=== PATIENT | female | born 1980 | race Hispanic/Latino ===

== ENCOUNTER 2019-05-10 19:40 | Inpatient (IN) | payer OTHER ==
[~2019-05-10 19:40] MED LIST: Iopamidol-370 76% 500 ML 1 ML ONE
[2019-05-10] MEDS ORDERED: Mag-Al 1200 mg/1200 mg/30 ML UDCUP ONE (20:03)
[2019-05-10] MEDS ORDERED: Lidocaine Viscous Sol 2% 15 ml UD Cup ONE (20:03)
--- NOTE | 2019-05-10 20:28 | RAD ---
PORTABLE CHEST ONE VIEW: 05/10/19 at 7:42 p.m. HISTORY: Epigastric pain, chest pain. FINDINGS/IMPRESSION: The heart size is enlarged. No lobar consolidation, pneumothoraces, holli pulmonary edema or pleural effusions are seen. POS: OFF
[2019-05-10 20:30] LABS: #Eosinphils 0.1 thou/uL (0.0-0.7); #Lymphocytes 1.2 thou/uL (1.20-3.40); #Monocytes 0.7 thou/uL (0.11-0.59); #Neutrophils 11.3 thou/uL (1.40-6.50); %Basophils 0.4 % (0.0-1.0); %Eosinophils 0.4 % (0.0-10.0); %Lymphocytes 9.3 % (21.0-51.0); %Neutrophils 84.9 % (42.0-75.0); Hemoglobin 15.4 g/dL (12.0-16.0); Mean Corpuscular HGB CONC 31.3 g/dL (32.0-36.0); Mean Corpuscular Hemoglobin 30.2 pg (27.0-31.0); Mean Corpuscular Volume 96.5 fL (78.0-98.0); Mean Platelet Volume 6.4 fL (7.4-10.4); Platelet Count 404 thou/uL (130-400); RBC Distribution Width 13.6 % (11.5-14.5); Red Blood Cell (RBC) Count 5.11 mill/uL (4.20-5.40); White Blood Cell (WBC) Count 13.3 thou/uL (4.8-10.8)
[2019-05-10 20:55] LABS: ALT (SGPT) 14 U/L (8-55); AST (SGOT) 12 U/L (5-34); Albumin 3.9 g/dL (3.5-5.0); Alkaline Phosphatase 122 U/L (40-110); Anion Gap 15 mmol/L (10-20); BUN (Urea Nitrogen) 5 mg/dL (7.0-18.7); Bilirubin, Total 0.5 mg/dL (0.2-1.2); Calc. Creatinine Clearance 0 mL/min (70-130); Calcium 9.1 mg/dL (7.8-10.44); Carbon Dioxide 28 mmol/L (22-29); Chloride 98 mmol/L (98-107); Estimated GFR-MDRD Greater than 90; Glucose 114 mg/dL (70-105); Lipase Less than 4 U/L (8-78); Potassium 3.8 mmol/L (3.5-5.1); Protein, Total 7.9 g/dL (6.0-8.3); Sodium 137 mmol/L (136-145)
[2019-05-10] MEDS ORDERED: Morphine 4 MG/ML VIAL ONE (21:02)
[2019-05-11] MEDS ORDERED: Morphine 4 MG/ML VIAL ONE (00:19)
[2019-05-11 02:17] LABS: BHCG - Serum Negative (NEGATIVE); Pregs Control Background? CLEAR/WHITE (CLR/WHITE); Pregs Control Bar Appear? YES (CONTROL BAR)
[2019-05-11 02:21] LABS: Pregnancy Test - Urine (BHCG) Negative (Negative); Pregu Control Background? CLEAR/WHITE (CLR/WHITE); Pregu Control Bar Appear? YES (CONTROL BAR); Specific Gravity 1.019 (1.002-1.036)
[2019-05-11] MEDS ORDERED: Ondansetron PF 4 MG/2 ML Vial ONE ×2 (02:25→09:45)
[2019-05-11] MEDS ORDERED: Acetaminophen 325 MG TAB PO PRN (04:08)
[2019-05-11] MEDS ORDERED: Senokot S 8.6-50 MG TAB PO PRN (04:08)
[2019-05-11] MEDS ORDERED: Ondansetron PF 4 MG/2 ML Vial IVP PRN (04:08)
--- NOTE | 2019-05-11 04:15 | PDOC.HHP ---
Hospitalist HPI - History of Present Illness Abdominal pain History of Present Illness: 38 yo female with cerebral palsy was brought to ER due to abdominal pain. Patient's mother is at bedside. Patient states that early this morning she started having mild abdominal pain in the left upper abdomen. She then had 4 episodes of vomiting without any blood or mucous. Her pain worsened to 9/10 intensity in the left upper abdomen with radiation to the back around the left side of the chest and abdomen. It is dull in nature. No aggravating factors. Partial relief with opioid medications. Associated with nausea and vomiting. No D/C, burning or pain with urination. No headache, dizziness, CP, cough or wheezing. She has some SOB when her pain worsens. At baseline, she is bed bound due to her cerebral palsy. No recent travel history or sick contacts. No rash or bruising or leg swelling. ED Course: CTA chest with no PE. CT abdomen/pelvis with cholelithiasis and gallbladder distention. 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 (Cerebral Palsy) Gastrointestinal: reports: no pertinent history Heme/Onc: reports: no pertinent history Hepatobiliary: reports: no pertinent history Psych: reports: Anxiety Musculoskeletal: reports: no pertinent history Rheumatologic: reports: no pertinent history Infectious Disease: reports: no pertinent history ENT: reports: no pertinent history Renal/: reports: no pertinent history Endocrine: reports: no pertinent history - Past Surgical History Past Surgical History: reports: no pertinent history (reviewed) - Family History Family History: reports: no pertinent history (reviewed) - Social History Smoking Status: Never smoker Alcohol: reports: None Drugs: reports: none Living Situation: With Family Activity level: bed bound - Exam General Appearance: awake alert, ill appearing (in moderate distress) Eye: PERRL, anicteric sclera ENT: normocephalic atraumatic, no oropharyngeal lesions, dry oral mucosa Neck: supple, symmetric, no JVD, no thyromegaly, no lymphadenopathy, no carotid bruit Heart: no murmur, no gallops, no rubs, normal peripheral pulses Heart - other findings: tachycardia present; Distant heart sounds Respiratory: CTAB, no wheezes, no rales, no ronchi, normal chest expansion, no tachypnea Respiratory - other findings: reduced air entry bilaterally Gastrointestinal: soft, non-distended, normal bowel sounds, no palpable masses, tender to palpation (Epigastric and RUQ; Gonzales's sign equivocal), distended ( obese) Extremities: no cyanosis, no clubbing, no edema Skin: normal turgor, no lesions, no rashes Neurological: cranial nerve grossly intact, normal sensation to touch Musculoskeletal: normal tone, no muscle wasting Psychiatric: normal affect, normal behavior, A&O x 3 Hospitalist Results - Labs Result Diagrams: 05/10/19 20:23 05/10/19: Lab results: WBC 13.3 thou/uL (4.8-10.8) H 05/10/19 20: Hgb 15.4 g/dL (12.0-16.0) 05/10/19: Hct 49.3 % (36.0-47.0) H 05/10/19: MCV 96.5 fL (78.0-98.0) 05/10/19: Plt Count 404 thou/uL (130-400) H 05/10/19 20: Neutrophils % 84.9 % (42.0-75.0) H 05/10/19 20: Sodium 137 mmol/L (136-145) 05/10/19: Potassium 3.8 mmol/L (3.5-5.1) 05/10/19 20: Chloride 98 mmol/L (98-107) 05/10/19: Carbon Dioxide 28 mmol/L (22-29) 05/10/19: BUN 5 mg/dL (7.0-18.7) L 05/10/19: Creatinine 0.62 mg/dL (0.6-1.1) 05/10/19: Glucose 114 mg/dL (70-105) H 05/10/19: Calcium 9.1 mg/dL (7.8-10.44) 05/10/19: Total Bilirubin 0.5 mg/dL (0.2-1.2) 05/10/19 20: AST 12 U/L (5-34) 05/10/19: ALT 14 U/L (8-55) 05/10/19 20:23 Alkaline Phosphatase 122 U/L (40-110) H 05/10/19 20: Troponin I Less than 0.010 ng/mL (< 0.028) 05/10/19 20: Serum Total Protein 7.9 g/dL (6.0-8.3) 05/10/19 20: Albumin 3.9 g/dL (3.5-5.0) 05/10/19 20: Lipase Less than 4 U/L (8-78) L 05/10/19 20:23 - EKG Interpretation EKG: Personally reviewed - Sinus tachycardia; No ST-T changes concerning for ischemia - Radiology Interpretation CT scan - abdomen Status: report reviewed by me (Cholelithiasis with distention measuring 12.6 cm) Hospitalist H&P A/P - Problem (1) Cholelithiasis Code(s): K80.20 - CALCULUS OF GALLBLADDER W/O CHOLECYSTITIS W/O OBSTRUCTION Status: Acute Qualifiers: Cholelithiasis location: gallbladder Cholecystitis presence: without cholecystitis Biliary obstruction: without biliary obstruction Qualified Code(s): K80.20 - Calculus of gallbladder without cholecystitis without obstruction Assessment and Plan: Pt. with acute abdominal pain and nausea/vomiting CT evidence of cholelithiasis with gallbladder distention Admit to inpatient status. High risk due to possible need for surgical intervention Expected to stay at least 2 midnights Surgery and GI consult NPO for now Adequate pain control meds (2) Cerebral palsy Code(s): G80.9 - CEREBRAL PALSY, UNSPECIFIED Status: Chronic Qualifiers: Cerebral palsy type: unspecified type Qualified Code(s): G80.9 - Cerebral palsy, unspecified Assessment and Plan: Supportive care (3) Morbid obesity Code(s): E66.01 - MORBID (SEVERE) OBESITY DUE TO EXCESS CALORIES Status: Chronic - Plan Plan: CODE STATUS - FULL CODE
[2019-05-11] MEDS: Ketorolac Tromethamine 30 MG/ML VIAL IVP PRN ×2 (05:29→18:33)
[2019-05-11] MEDS: Sodium Chloride 0.9% 1,000 ML IV SCH ×4 (05:29→18:35)
[2019-05-11 06:36] VITALS: BMI 51.0
[2019-05-11] MEDS ORDERED: FLU VACC QS2019-20(6MOS UP)/PF 60 MCG/0.5 ML SYRINGE IM ONE (06:45)
--- NOTE | 2019-05-11 08:01 | CT ---
PRELIMINARY REPORT/[facility]/EMERGENCY AFTER HOURS PROCEDURE EXAM: CT Abdomen and Pelvis Without Intravenous Contrast CLINICAL HISTORY: [id number] presented to the ED with a c/o CP onset this morning. Pt reports abdominal pain and vomited today . Pt reports she vomiting 4-5 times. Pt reports lower back pain on both sides TECHNIQUE: Axial computed tomography images of the abdomen and pelvis without intravenous contrast. CONTRAST: None. COMPARISON: None provided. FINDINGS: LUNG BASES: No basilar airspace consolidation or pleural effusion. LIVER: Unremarkable. GALLBLADDER AND BILE DUCTS: Stones in the gallbladder lumen. No gallbladder wall thickening or peric holecystic fluid. The gallbladder is distended measuring 12.6 cm in length. No ductal dilation. PANCREAS: Unremarkable. SPLEEN: Unremarkable. ADRENAL GLANDS: Unremarkable. KIDNEYS, URETERS, AND BLADDER: Unremarkable. No hydronephrosis or nephrolithiasis. No ureteral or ronn dder calculi. STOMACH AND BOWEL: No obstruction. No wall thickening. No CT evidence of colitis or acute diverticuli tis. APPENDIX: No CT evidence for appendicitis. PERITONEUM: No free fluid. No free air. LYMPH NODES: No lymphadenopathy. REPRODUCTIVE: The uterus and ovaries are normal. VASCULATURE: No aortic aneurysm. ABDOMINAL WALL AND SOFT TISSUES: Unremarkable. BONES: Acute anterior compression fracture of L2 with 20% height loss. Multilevel degenerative disc disease. IMPRESSION: Cholelithiasis with hydrops of the gallbladder. Acute anterior compression fracture of L2. ELECTRONICALLY SIGNED BY: Alexei Gregory MD May 11, 2019 2:58:27 AM SITECORE DEVELOPER This report is intended for review by the ordering physician only, in accordance of law. If you recei ve this report in error, please call [facility] at [phone]. FINAL REPORT EMERGENCY AFTER HOURS NONCONTRAST CT ABDOMEN AND PELVIS : HISTORY: Chest pain with onset of symptoms this morning. Patient also reports abdominal pain and vomiting. Low er back pain bilaterally. IMPRESSION: 1. Distention of the gallbladder with gallbladder calculi present. 2. Contrast in the bilateral renal collecting systems as well as in the urinary bladder related to pr ior contrasted study. This limits evaluation for renal or ureteral calculi. No hydronephrosis is present. 3. Probable small left ovarian cyst measuring 2.7 cm. 4. Suggestion of minimal stranding adjacent to the fundus of the distended gallbladder. If there is c oncern for cholecystitis, right upper quadrant ultrasound may be beneficial for further evaluation. 5. Mild compression fracture involving the superior endplate L2 vertebral body. Exact age is indeterm inate, but this may be more recent in origin. Findings are agreement with the preliminary report by [facility]. Transcribed Date/Time: 05/11/2019 8:06 AM
[2019-05-11] MEDS: Famotidine/PF 20 mg/2ml Vial SLOW IVP SCH ×2 (08:06→20:48)
--- NOTE | 2019-05-11 08:13 | ULT ---
ULTRASOUND GALLBLADDER RIGHT UPPER QUADRANT: HISTORY: Right upper quadrant abdominal pain. COMPARISON: None. FINDINGS: Real-time beckham scale and color evaluation of the right upper quadrant of the abdomen was performed. The hepatic echotexture is limited. There is cholelithiasis and wall thickening. Positive Gonzales's sign. Gallbladder is distended. Common bile duct measures 5 mm, normal. IMPRESSION: Distended gallbladder with cholelithiasis as well as a positive Gonzales's sign suggesting acute cholec ystitis. This is suggested on the CT examination. POS: CET
--- NOTE | 2019-05-11 08:38 | CT ---
PRELIMINARY REPORT/[facility]/EMERGENCY AFTER HOURS PROCEDURE EXAM: CTA Chest with Intravenous Contrast CLINICAL HISTORY: F38 presented to the ED with a c/o CP onset this morning. Pt reports abdominal pain and vomited today . Elevated D-dimer TECHNIQUE: Axial CTA images of the chest with intravenous contrast. MIP reconstructed images were created and re viewed. CONTRAST: With; ISOVUE 370, 95ml COMPARISON: None provided. FINDINGS: PULMONARY ARTERIES No intraluminal filling defect suspicious for PE. AORTA No thoracic aortic aneurysm or dissection. LUNGS Mosaic attenuation throughout the lungs. No pulmonary mass. No focal airspace consolidation. PLEURAL SPACES No pleural effusion. No pneumothorax. HEART AND MEDIASTINUM Mild cardiomegaly. No significant pericardial effusion. LYMPH NODES No lymphadenopathy. BONES No focal osseous abnormality or acute fracture. CHEST WALL AND UPPER ABDOMEN Stones in the gallbladder lumen. No vulvar wall thickening or perichole cystic fluid. The chest wall is unremarkable. IMPRESSION: No evidence of a pulmonary embolism. Nonspecific mosaic attenuation of the lungs. Mild cardiomegaly. ELECTRONICALLY SIGNED BY: Alexei Gregory MD May 11, 2019 1:18:43 AM PUBLIC HEALTH SANITARIAN This report is intended for review by the ordering physician only, in accordance of law. If you recei ve this report in error, please call [facility] at [phone]. FINAL REPORT CT ANGIOGRAM CHEST WITH CONTRAST: HISTORY: Chest pain, elevated D-dimer. COMPARISON: None. FINDINGS: CT angiogram chest performed after the intravenous administration of contrast. Three-D rendering was provided. Findings and impression are concordant with the preliminary report, aside from where it says vulvar w all thickening as the vulva is not interrogated. There is also wall thickening of the gallbladder bahena spicious for acute cholecystitis. POS: CET
[2019-05-11] MEDS ORDERED: Dexamethasone 20 MG/5 ML VIAL ONE (09:45)
[2019-05-11] MEDS ORDERED: PROPOFOL 200 MG/20 ML VIAL ONE (09:45)
[2019-05-11] MEDS ORDERED: Rocuronium Bromide 10 MG/ML (10ML VIAL) ONE (09:45)
[2019-05-11] MEDS ORDERED: Lidocaine 1% PF 5 ML VIAL ONE (09:45)
[2019-05-11] MEDS: Meperidine HCl/PF 25 MG/ML VIAL SLOW IVP PRN ×2 (10:07→23:16)
[2019-05-11] MEDS: metroNIDAZOLE 500 MG in Premix Bag 1 BAG IVPB SCH ×2 (10:10→18:34)
--- NOTE | 2019-05-11 10:37 | PDOC.GSCN ---
Surgery Consult: HPI - Consult details Date: 05/11/19 Time: 10:39 Reason for consult: gallstones (Full note dictated. Pt comes in with 1 day h/o upper abd pain and vomiting. W/U is c/s cholecystitis. Heart is tachy, but regular. Lungs grossly clear. ABD is obese and firm. CT and US are consistent with cholecystitis. WBC elevated. Discussed surgery with the pt's mother and father. They understand that she is at high risk given her immobility and morbid obesity. Other risks include damage to kitty, liver, and bile ducts.) Surgery Consult: Exam - Vital signs Vital signs: Vital Signs - Most Recent Temp Pulse Resp BP Pulse Ox 98.0 F 120 H 20 128/93 H 93 L 05/11/19 07:44 05/11/19 07:44 05/11/19 07:44 05/11/19 07:44 05/11/19 08:05 Surgery Consult: Meds - Medications Medications: Current Medications Acetaminophen (Tylenol) 650 mg PO Q4H PRN PRN Reason: Headache/Fever/Mild Pain (1-3) Famotidine (Pepcid) 20 mg SLOW IVP Q12HR [facility] Last Admin: 05/11/19 08:06 Dose: 20 mg Metronidazole 500 mg/ Device 100 mls @ 100 mls/hr IVPB Q8H [facility] Last Admin: 05/11/19 10:10 Dose: 100 mls Ciprofloxacin/Dextrose 400 mg/ (Device) 200 mls @ 200 mls/hr IVPB Q12H [facility] Ketorolac Tromethamine (Toradol) 30 mg IVP Q6H PRN PRN Reason: Moderate to Severe Pain (6-10) Stop: 05/16/19 04:11 Last Admin: 05/11/19 05:29 Dose: 30 mg Meperidine HCl (Demerol) 12.5 mg SLOW IVP Q4H PRN PRN Reason: Moderate to Severe Pain (6-10) Last Admin: 05/11/19 10:07 Dose: 12.5 mg Ondansetron HCl (Zofran) 4 mg IVP Q6H PRN PRN Reason: Nausea/Vomiting Senna/Docusate Sodium (Senokot S) 2 tab PO BID PRN PRN Reason: Constipation Sodium Chloride (Flush - Normal Saline) 10 ml IVF Q12HR [facility] Last Admin: 05/11/19 08:07 Dose: 10 ml Sodium Chloride (Flush - Normal Saline) 10 ml IVF PRN PRN PRN Reason: Saline Flush - Allergies Allergies/Adverse Reactions: Allergies Allergy/AdvReac Type Severity Reaction Status Date / Time Penicillins Allergy Severe Anaphylaxis Verified 05/11/19 05:24 peanut Allergy Verified 05/11/19 05:23 Surgery Consult: Results - Labs Result Diagrams: 05/10/19 20:05/10/19 Lab results: Laboratory Results WBC 13.3 thou/uL (4.8-10.8) H 05/10/19: RBC 5.11 mill/uL (4.20-5.40) 05/10/19 Hgb 15.4 g/dL (12.0-16.0) 05/10/19 Hct 49.3 % (36.0-47.0) H 05/10/19: MCV 96.5 fL (78.0-98.0) 05/10/19: MCH 30.2 pg (27.0-31.0) 05/10/19 MCHC 31.3 g/dL (32.0-36.0) L 05/10/19 RDW 13.6 % (11.5-14.5) 05/10/19 Plt Count 404 thou/uL (130-400) H 05/10/19: MPV 6.4 fL (7.4-10.4) L 05/10/19: Neutrophils % 84.9 % (42.0-75.0) H 05/10/19: Lymphocytes % 9.3 % (21.0-51.0) L 05/10/19: Monocytes % 5.0 % (0.0-10.0) 05/10/19 Eosinophils % 0.4 % (0.0-10.0) 05/10/19 Basophils % 0.4 % (0.0-1.0) 05/10/19 20: Neutrophils # 11.3 thou/uL (1.40-6.50) H 05/10/19: Lymphocytes # 1.2 thou/uL (1.20-3.40) 05/10/19 20:23 Monocytes # 0.7 thou/uL (0.11-0.59) H 05/10/19 20: Eosinophils # 0.1 thou/uL (0.0-0.7) 05/10/19 20: Basophils # 0.0 thou/uL (0.0-0.2) 05/10/19: D-Dimer 0.50 *mcg/mL (0.27-0.43) H 05/10/19 20:17 Sodium 137 mmol/L (136-145) 05/10/19 20: Potassium 3.8 mmol/L (3.5-5.1) 05/10/19: Chloride 98 mmol/L (98-107) 05/10/19: Carbon Dioxide 28 mmol/L (22-29) 05/10/19: Anion Gap 15 mmol/L (10-20) 05/10/19: BUN 5 mg/dL (7.0-18.7) L 05/10/19: Creatinine 0.62 mg/dL (0.6-1.1) 05/10/19: Estimated GFR (MDRD) Greater than 90 05/10/19: Glucose 114 mg/dL (70-105) H 05/10/19: Calcium 9.1 mg/dL (7.8-10.44) 05/10/19 Total Bilirubin 0.5 mg/dL (0.2-1.2) 05/10/19: AST 12 U/L (5-34) 05/10/19: ALT 14 U/L (8-55) 05/10/19: Alkaline Phosphatase 122 U/L (40-110) H 05/10/19 Troponin I Less than 0.010 ng/mL (< 0.028) 05/10/19 Serum Total Protein 7.9 g/dL (6.0-8.3) 05/10/19: Albumin 3.9 g/dL (3.5-5.0) 05/10/19: Globulin 4.0 g/dL (2.4-3.5) H 05/10/19 20:23 Albumin/Globulin Ratio 1.0 g/dL (1.2-2.2) L 05/10/19 20:23 Lipase Less than 4 U/L (8-78) L 05/10/19 20:23 Serum , Qual Negative (NEGATIVE) 05/11/19 01:55 Ur Specific [place] 1.019 (1.002-1.036) 05/11/19 01:53 Urine Test Negative (Negative) 05/11/19 01:53
[2019-05-11] MEDS ORDERED: Heparin 5,000 UNITS/ML VIAL SC SCH ×2 (10:41→11:00)
[2019-05-11] MEDS ORDERED: Fentanyl 100 MCG/2 ML VIAL ONE ×3 (11:19→15:45)
[2019-05-11] MEDS ORDERED: Lidocaine 2% Jelly 5 ML TUBE ONE (11:19)
[2019-05-11] MEDS ORDERED: Midazolam HCl 2 mg/2 ml Vial ONE (11:19)
[2019-05-11] MEDS ORDERED: HYDROmorphone 0.5 MG/0.5 ML SYRINGE ONE (11:19)
[2019-05-11] MEDS ORDERED: Bupivacaine PF 0.5% 30 ML VIAL ONE (11:30)
[2019-05-11] MEDS ORDERED: Lidocaine 1% w/Epinephrine 1:100K 20 ML VIAL ONE (11:30)
--- NOTE | 2019-05-11 12:16 | CON ---
DATE OF CONSULTATION: 05/11/2019 REASON FOR CONSULTATION: Cholecystitis. CHIEF COMPLAINT: Unobtainable. HISTORY OF PRESENT ILLNESS: The patient is a 38-year-old female with a history of cerebral palsy, who was brought into the emergency room with abdominal pain. History is provided by the patient's mother. She states that the patient started having pain yesterday. It was in the epigastric region. She had multiple episodes of vomiting. The patient was complaining of pain that was 9/10, radiated to her back. She was given pain medicine in the ER, which helped somewhat. The patient is immobile secondary to her cerebral palsy. PAST MEDICAL HISTORY: For morbid obesity and cerebral palsy. PAST SURGICAL HISTORY: None. ALLERGIES: TO PENICILLIN AND PEANUT. CURRENT MEDICATIONS: None. REVIEW OF SYSTEMS: Not obtainable. PHYSICAL EXAMINATION: VITAL SIGNS: Heart rate in the low 100s, temperature 98.4, and blood pressure 130/90. GENERAL: Morbidly obese female, who appears somewhat uncomfortable. HEENT: Head is normocephalic and atraumatic. NECK: Obese and full with a midline trachea. LUNGS: Grossly clear to auscultation bilaterally. HEART: Tachycardic, but it is regular. ABDOMEN: Obese and tender to palpation in the right upper quadrant. No palpable masses, although body habitus limits further examination. EXTREMITIES: Without deformity. SKIN: Good turgor. No jaundice. LABORATORY DATA: White blood cell count of 13.3 and H and H is 15.4 and 49. Total bilirubin is 0.5. AST and ALT are normal. Alkaline phosphatase is 122. IMAGING: The patient had a CT scan of the abdomen as well as a right upper quadrant ultrasound. I independently reviewed the images as well as read the radiologist's interpretation. The gallbladder is distended. The patient has cholelithiasis. Gallbladder wall thickness is normal in ultrasound. Common bile duct is 5 mm. ASSESSMENT: 1. Acute cholecystitis. I had a lengthy discussion with the patient's parents about surgical intervention. The patient is at increased risk secondary to her morbid obesity as well as her immobility. 2. Morbid obesity. This will increase the patient's risk of postoperative pulmonary problems as well as deep venous thrombosis, hernias, and wound infection. PLAN: The patient is already on antibiotics. She is n.p.o. We will give her subcutaneous heparin prior to going to the operating room. She will be going to the operating room today for laparoscopic cholecystectomy. Decision for surgery was made today. Job ID: [id number]
[2019-05-11] MEDS ORDERED: SUGAMMADEX SODIUM 500 MG/5 ML VIAL ONE (12:58)
--- NOTE | 2019-05-11 15:14 | PDOC.GSOPN ---
General Surgery Procedure Note - Operative Note Date: 05/11/19 Time: 15:12 Pre-op diagnosis: Cholecystitis Post-op diagnosis: same Procedure: Lap tal Findings: Severe acute on chronic cholecystitis. Critical view was obtained Anesthesia: other (General) Surgeon: Armando Aguillon Estimated blood loss: 50 Pathology: other (gallbladder) Condition: stable
[2019-05-11] MEDS ORDERED: Promethazine HCl 25 MG/ML VIAL SLOW IVP PRN (15:39)
[2019-05-11] MEDS ORDERED: Promethazine HCl 25 MG/ML VIAL IM PRN (15:39)
[2019-05-11] MEDS ORDERED: Ondansetron HCl/PF 4 MG/2 ML Vial IVP PRN (15:39)
--- NOTE | 2019-05-11 17:17 | CON ---
DATE OF CONSULTATION: 05/11/2019 REASON FOR CONSULTATION: Cholecystitis. HISTORY OF PRESENT ILLNESS: Ms. Kay is a 38-year-old with some mild cerebral palsy, who came to the emergency room with severe epigastric and right upper quadrant pain last night. She had a CAT scan of the chest and thorax, which showed gallstones. Apparently, the patient is having a lot of chest pain that persisted. The CT angio and she had a CAT scan of the abdomen and pelvis at about midnight and this showed distended gallbladder with gallstones. It was felt that she had hydrops of the gallbladder and also anterior compression fracture of L2. Then, an ultrasound was performed at 4 in the morning and that showed a 5-mm common bile duct, distended gallbladder with gallstones, and Gonzales sign. She was admitted to the medicine service. Apparently, she reports that she had nausea, vomiting, and epigastric pain for about 12 to 24 hours prior to coming in. She had some radiation of pain to the back and shoulders. Pain is quite severe, is having vomiting. In the emergency room, she was tachycardic to 120, but had no overt fever. Presently, she is waiting to go to the operating room. PAST HISTORY: Cerebral palsy. PAST SURGICAL HISTORY: None. FAMILY HISTORY: Noncontributory. SOCIAL HISTORY: She does not smoke, drink, or use illicit drugs. She lives with family. She is bed-bound. MEDICATIONS AT HOME: None. MEDICATIONS HERE: 1. Acetaminophen. 2. Pepcid. 3. Fentanyl p.r.n. 4. Meperidine p.r.n. 5. Toradol p.r.n. 6. Flagyl. 7. Cipro. 8. Phenergan. 9. She is also receiving 3 L of fluid bolus. PHYSICAL EXAMINATION: VITAL SIGNS: Pulse 122, temperature 98, respirations 18, blood pressure 147/101. GENERAL: She is overweight. She is nonicteric. LUNGS: Clear. HEART: Regular rate and rhythm without clicks or murmurs. ABDOMEN: Notable for tenderness in the right upper quadrant with guarding. There is no rebound. There is no palpable hepatosplenomegaly. EXTREMITIES: A little bit of edema. She has a large pannus, it is not tender. DIAGNOSTIC STUDIES: Urine test/serum test was negative. White count 13.3, platelet count 404, and hemoglobin 11.5. Comprehensive metabolic profile notable for BUN and creatinine of 5 and 0.6. Electrolytes were normal. Alkaline phosphatase was 122, globulin 4, and total protein 7.8. Lipase less than 4. test negative. ASSESSMENT: 1. Acute cholecystitis. 2. Mild elevation of alkaline phosphatase. This could be probably related to her liver, could be related to fatty liver, could be related to choledocholithiasis, even though that measured a duct of 5 mm. I discussed with General Surgery. They are not planning on an IOC based on how ill she is and her size. RECOMMENDATIONS: 1. Agree with laparoscopic cholecystectomy. 2. If liver function tests persist to be elevated after surgery, can consider an MRCP. If she has a spike in LFTs or patterns suggest overt choledocholithiasis or biliary pain, we can consider referral for an EUS to confirm common duct stones or an ERCP. We will follow along with you. Job ID: [id number]
--- NOTE | 2019-05-11 19:06 | PDOC.HOSPP ---
- Subjective Encounter Date: 05/11/19 - Objective Vital Signs & Weight: Vital Signs (12 hours) Temp Pulse Resp BP Pulse Ox 05/11/19 17:06 97.8 F 94 16 124/81 117 H 05/11/19 08:05 93 L 05/11/19 07:44 98.0 F 120 H 20 128/93 H 88 L Weight Weight 269 lb 12.8 oz I&O: 05/10/19 05/11/19 05/12/19 06:59 06:59 06:59 Output Total 630 Balance -630 Result Diagrams: 05/10/19 20:23 05/10/19 20:23 Hospitalist ROS - Medication Medications: Active Medications Generic Name Dose Route Start Last Admin Trade Name Freq PRN Reason Stop Dose Admin Famotidine 20 mg 05/11/19 09:00 05/11/19 08:06 Pepcid SLOW IVP 20 mg Q12HR [facility] Administration Metronidazole 500 mg/ Device 100 mls @ 100 mls/hr 05/11/19 10:00 05/11/19 18: 34 IVPB 100 mls Q8H [facility] Administration Ciprofloxacin/Dextrose 400 mg/ 200 mls @ 200 mls/hr 05/11/19 12:00 05/11/19 18:06 Device IVPB Not Given Q12H [facility] Sodium Chloride 1,000 mls @ 150 mls/hr 05/11/19 18:00 05/11/19 18:35 Normal Saline 0.9% IV 1,000 mls .Q6H40M [facility] Administration Ketorolac Tromethamine 30 mg 05/11/19 04:10 05/11/19 18:33 Toradol IVP 05/16/19 04:11 30 mg Q6H PRN Administration Moderate to Severe Pain (6-10) Meperidine HCl 12.5 mg 05/11/19 04:10 05/11/19 10:07 Demerol SLOW IVP 12.5 mg Q4H PRN Administration Moderate to Severe Pain (6-10) Sodium Chloride 10 ml 05/11/19 09:00 05/11/19 08:07 Flush - Normal Saline IVF 10 ml Q12HR [facility] Administration - Exam General Appearance: NAD, awake alert Eye: PERRL, anicteric sclera ENT: normocephalic atraumatic, no oropharyngeal lesions Neck: supple, no JVD Heart: RRR, no murmur, no gallops, no rubs Respiratory: CTAB, no wheezes, no rales, no ronchi Gastrointestinal: soft, non-distended, normal bowel sounds Gastrointestinal - other findings: RUQ tenderness, + Fowler Extremities: no cyanosis, no clubbing, no edema Skin: normal turgor, no lesions, no rashes Hosp A/P - Plan Chest X ray:, mild cardiomegaly CTA: no PE, mild cardiomegaly CT: distended GB with calculi. Left ovarian cyst. L2 vertebral compression fracture US GB: cholecystitis C This is a 38 year old female patient with cerebral palsy who presented with acute cholecystitis Acute cholecystitis - started IV cipro and flagyl empirically since anaphlaxis to penicillin - s/p lap tal today Sinus tachycardia - s/p 2L bolus - started maintenance fluids 150/hour - started antibiotics History of cerebral palsy - not on any home meds DVT prophylaxis: heparin SC Code status: full code
[2019-05-11] MEDS: Heparin 5,000 UNITS/ML VIAL SC SCH (20:48)
--- NOTE | 2019-05-11 21:38 | OP ---
DATE OF PROCEDURE: 05/11/2019 PREOPERATIVE DIAGNOSIS: Cholecystitis. POSTOPERATIVE DIAGNOSIS: Acute on chronic cholecystitis. PROCEDURE PERFORMED: Laparoscopic cholecystectomy. ANESTHESIA: General. ESTIMATED BLOOD LOSS: 50. SPECIMENS: Gallbladder. COMPLICATIONS: None. SPONGE AND NEEDLE COUNT: Correct x2. INDICATIONS FOR PROCEDURE: The patient is a 38-year-old super morbidly obese female with cerebral palsy. She presented with a 1-day history of abdominal pain and nausea and vomiting. Preoperative workup was consistent with cholecystitis. FINDINGS: Acute on chronic cholecystitis. Critical view of safety was obtained. DESCRIPTION OF PROCEDURE: After written preprocedural informed consent by the patient's family, the patient was taken to the operating room, placed in supine position and underwent general anesthesia. Heparin had been administered preoperatively. She was secured to the operating room table in multiple places. The abdomen was then prepared and draped in a sterile fashion. A time-out was performed. The direct optical entry technique was used in the right subcostal margin. Pneumoperitoneum was established. The viscera underlying the entry was inspected. There was no damage noted. Additional trocars were placed on the right costal margin and one in the umbilicus. Upon visualization of the right upper quadrant, the gallbladder was very distended and taut. An aspiration needle was used to decompress the gallbladder. The fundus was then grasped and retracted over the dome of the liver. Given her body habitus, there was very little working room within the abdomen. The omentum was swept off the gallbladder until the infundibulum was identified. This was retracted laterally. Mostly blunt dissection was used to remove the inflammatory adhesions of the surrounding fatty tissue off the gallbladder. Eventually, the cystic duct was identified. Hook electrocautery was then used to dissect medially until the cystic artery was encountered. Both of these structures were circumferentially cleared of their areolar tissue. The critical view of safety was obtained. Clips were placed proximally and distally on these structures and they were divided. The gallbladder was then removed off the gallbladder bed fossa utilizing hook electrocautery. The specimen was placed in an EndoCatch bag and removed via the umbilicus. Due to the size of the gallbladder and gallstones, the fascia had to be opened up slightly. The drain was then placed in the right pericolic gutter after the area had been generously irrigated and suctioned free. There was no bleeding within the hepatic bed. The clips were noted to be in place. The remaining trocars were removed. The drain was secured to the patient's skin with a nylon suture. The fascia was closed with a 0 Vicryl. The wounds were irrigated and closed with Vicryl and Monocryl at the umbilicus and Monocryl at the other incisions. Dermabond was applied. The patient was extubated and taken to the post anesthesia care area in good condition having tolerated procedure well. Job ID: [id number]
[2019-05-12] MEDS: metroNIDAZOLE 500 MG in Premix Bag 1 BAG IVPB SCH ×3 (03:01→18:21)
[2019-05-12 06:23] LABS: #Lymphocytes 0.9 thou/uL (1.20-3.40); #Monocytes 0.7 thou/uL (0.11-0.59); #Neutrophils 9.5 thou/uL (1.40-6.50); %Basophils 0.1 % (0.0-1.0); %Eosinophils 0.2 % (0.0-10.0); %Lymphocytes 7.6 % (21.0-51.0); %Monocytes 6.7 % (0.0-10.0); %Neutrophils 85.4 % (42.0-75.0); Hemoglobin 13.8 g/dL (12.0-16.0); Mean Corpuscular HGB CONC 32.7 g/dL (32.0-36.0); Mean Corpuscular Hemoglobin 31.2 pg (27.0-31.0); Mean Corpuscular Volume 95.6 fL (78.0-98.0); Mean Platelet Volume 6.9 fL (7.4-10.4); Platelet Count 381 thou/uL (130-400); RBC Distribution Width 13.3 % (11.5-14.5); Red Blood Cell (RBC) Count 4.42 mill/uL (4.20-5.40); White Blood Cell (WBC) Count 11.1 thou/uL (4.8-10.8)
[2019-05-12] MEDS: Sodium Chloride 0.9% 1,000 ML IV SCH ×2 (06:30→16:01)
[2019-05-12 06:46] LABS: ALT (SGPT) 15 U/L (8-55); AST (SGOT) 19 U/L (5-34); Albumin 3.3 g/dL (3.5-5.0); Alkaline Phosphatase 104 U/L (40-110); Anion Gap 11 mmol/L (10-20); BUN (Urea Nitrogen) 5 mg/dL (7.0-18.7); Bilirubin, Total 0.6 mg/dL (0.2-1.2); Calc. Creatinine Clearance 271 mL/min (70-130); Calcium 8.4 mg/dL (7.8-10.44); Carbon Dioxide 28 mmol/L (22-29); Chloride 103 mmol/L (98-107); Estimated GFR-MDRD Greater than 90; Globulin 3.5 g/dL (2.4-3.5); Glucose 91 mg/dL (70-105); Potassium 3.9 mmol/L (3.5-5.1); Protein, Total 6.8 g/dL (6.0-8.3); Sodium 138 mmol/L (136-145)
[2019-05-12] MEDS: Ketorolac Tromethamine 30 MG/ML VIAL IVP PRN ×3 (06:54→23:49)
--- NOTE | 2019-05-12 07:40 | PRG ---
DATE OF SERVICE: 05/12/2019 CHIEF COMPLAINT: "I feel better." HISTORY OF PRESENT ILLNESS: The patient is postoperative day 1 from a laparoscopic cholecystectomy for acute on chronic cholecystitis. She states that her pain is much improved. She has no nausea. She has been tolerating clear liquids and is hungry. PHYSICAL EXAMINATION: VITAL SIGNS: Temperature 97.8, heart rate 113, and blood pressure 106/75. GENERAL: No acute distress. Obese. LUNGS: Grossly clear to auscultation bilaterally. HEART: Irregularly irregular. ABDOMEN: Soft and appropriately tender. Jair-Blanco drain had serosanguineous fluid within it. Incisions are clean, dry, and intact. LABORATORY DATA: White blood cell count is 11. LFTs are all normal. ASSESSMENT: Postop day 1 from laparoscopic cholecystectomy - from my perspective, she is nearing discharge. If she is going to be going home today, please let me know and I will consider removing her drain. Otherwise, I will advance her diet. Job ID: [id number]
[2019-05-12] MEDS: Heparin 5,000 UNITS/ML VIAL SC SCH ×2 (08:51→20:23)
[2019-05-12] MEDS: Famotidine/PF 20 mg/2ml Vial SLOW IVP SCH ×2 (08:51→20:23)
[2019-05-12] MEDS ORDERED: Iopamidol-370 76% 500 ML 1 ML ONE (11:29)
--- NOTE | 2019-05-12 12:49 | PRG ---
DATE OF SERVICE: 05/12/2019 SUBJECTIVE: The patient is seen and examined at the bedside. She has some abdominal discomfort, but it is significantly less than what she had before. OBJECTIVE: VITAL SIGNS: Blood pressure is 122/61, pulse is 127, respiratory rate is 22, O2 saturation is 92% on nasal cannula, and temperature is 98.6. HEENT: Head is atraumatic and normocephalic. Eyes are PERRLA. Sclerae are nonicteric. GENERAL: She is very obese. Her BMI is 51. LUNGS: Breath sounds diminished at both bases. HEART: S1 and S2. Tachycardic. No S3. No S4. ABDOMEN: Obese. Points of entry for laparoscopic cholecystectomy clean. No bleeding. Bowel sounds are present. EXTREMITIES: No clubbing, cyanosis, or edema. LABORATORY DATA: Labs showed white count of 11.1, hemoglobin of 13.8, hematocrit 42.2, platelet count is 381,000. Normal electrolytes, BUN of 5, creatinine 0.55. Liver function tests within normal limits. Albumin 3.3. Serum test negative. IMPRESSION: 1. Acute on chronic cholecystitis, status post laparoscopic cholecystectomy. 2. Sinus tachycardia of unclear etiology. The patient is on IV fluids. We will stop her O2 supplementation by nasal cannula and see how she tolerates that and we will most likely do ABGs and repeat D-dimers to make sure there is no any pulmonary embolism postop; although, she presented with sinus tachycardia in the emergency room and she might have chronic tachycardia, she is not aware of. 3. History of cerebral palsy. PLAN: As mentioned above. Job ID: [id number]
[2019-05-12 12:58] LABS: Actual Bicarbonate (HCO3a) 25.1 mEq/L (22-28); Base Excess (BEa) 0.8 mEq/L (-2.0 to +3.0); CO2 Tension 39.2 mmHg (35.0-45.0); Calcium, Ionized 1.13 mmol/L (1.12-1.30); Carboxyhemoglobin (COHb) 1.5 gm% (0.0-3.0); Hemoglobin (Hb) 14.1 g/dL (12.0-16.0); Potassium - ABG Lab 3.41 mmol/L (3.70-5.30); pH, Arterial 7.43 (7.35-7.45)
[2019-05-12 13:06] LABS: O2 Tension (PaO2) 44.9 mmHg (80.0-100.0); Puncture Site RRA
--- NOTE | 2019-05-12 14:53 | PRG ---
DATE OF SERVICE: 05/12/2019 SUBJECTIVE: Ms. Kay had her gallbladder removed yesterday. She is doing fine. OBJECTIVE: They are checking her oxygen levels. Temperature is 98, pulse 127, blood pressure is 122/61. She is morbidly obese. She is resting in bed. She has no distress. Abdomen is mildly tender. Right upper abdomen drain has serosanguineous fluid in it, 50 mL overnight. She has put out 2.4 L urine overnight. LABORATORY DATA: White count is 11.0, hemoglobin is 13.8, platelet count 380. Comprehensive metabolic profile normal. , alkaline phosphatase is down to 104. Bilirubin is normal. ASSESSMENT: 1. Cholecystitis, status post laparoscopic cholecystectomy, no evidence of complications. 2. Elevated alkaline phosphatase, resolved. Normal LFTs. PLAN: Postop care per general surgeon. Hospitalist will sign off. If I can be of any further assistance in the patient's care, please do not hesitate to contact me. Job ID: [id number]
--- NOTE | 2019-05-12 16:16 | CT ---
EXAM: CT angiogram of the chest including 3-D rendering: HISTORY: Profound hypoxemia COMPARISON: Yesterday's exam, 05/11/2019 FINDINGS: Pulmonary artery opacification is somewhat limited. Examination is significantly limited by large bod y habitus, motion, and fairly extensive diffuse pulmonary parenchymal disease. No evidence for aortic aneurysm or dissection. No convincing CT evidence for acute pulmonary embolism, particularly involving the larger diameter ve ssels. The lower size lower diameter pulmonary arteries are poorly seen.. Very extensive scattered interstitial and alveolar opacities throughout both lungs developing since t he prior study with small pleural effusions. Possibilities include that of bilateral edema versus diffuse bilateral pneumonia or pneumonitis. No evidence for mediastinal mass or adenopathy. No evidence for pleural or pericardial effusion. Recent postop cholecystectomy changes. IMPRESSION: No convincing CT evidence for acute central pulmonary artery pulmonary embolism. Fairly extensive bilateral diffuse alveolar and interstitial opacities evidence for pulmonary edema v ersus bilateral pneumonia. Continued short-term follow-up plain film examinations. Exam is significantly limited by large body habitus and motion.
--- NOTE | 2019-05-12 16:44 | CON ---
DATE OF CONSULTATION: 05/10/2019 CONSULTING PHYSICIAN: Chino Gracia MD REASON FOR CONSULTATION: Hypoxemia. HISTORY OF PRESENT ILLNESS: Shyla is a 38-year-old who underwent laparoscopic cholecystectomy yesterday for cholelithiasis. Dr. Gracia was concerned because she remains hypoxic. I am not completely clear what her baseline oxygenation is. Family tells me she has cerebral palsy and has not walked since . She has never had any pulmonary thromboemboli in the past. She has no previous history of lung disease. She had a CT pulmonary angiogram at the time of admission which was negative. PAST MEDICAL HISTORY: 1. Cerebral palsy with inability to walk. 2. Obesity. PAST SURGICAL HISTORY: None. SOCIAL HISTORY: Nonsmoker. Does not consume alcohol. Does not use illicit drugs. MEDICATIONS PRIOR TO ADMISSION: None. CURRENT INPATIENT MEDICATIONS: Reviewed, see chart. REVIEW OF SYSTEMS: No fever, chills, chest pain, hemoptysis, hematochezia, hematemesis, melena, hematuria, or dysuria. PHYSICAL EXAMINATION: VITAL SIGNS: Temperature 98.6, pulse 127, respirations 22, O2 saturation 92% on 2 L, blood pressure 122/61. She is 5 feet 1 inch, weighs 270 pounds. HEENT: Shows a class IV Mallampati airway. NECK: Increased girth. LUNGS: Diminished breath sounds in the bases. CARDIAC: S1, S2 regular. ABDOMEN: Soft. Nontender. EXTREMITIES: No clubbing, cyanosis, or edema. LABORATORY DATA: White blood cell count 11, hematocrit 42, platelet count 381. D-dimer was 0.5. PH of 7.43, pCO2 of 39, pO2 of 44, that was apparently room air arterial blood gas. Sodium 138, potassium 3.9, chloride 103, CO2 of 28, BUN 5, creatinine 0.5, glucose 91. CT pulmonary angiogram is pending. ASSESSMENT: 1. Hypoxemia postop-differential diagnosis in this case would be atelectasis. Less likely this is a pulmonary embolism. Usually lower extremity paralysis is somewhat protective against developing DVTs and pulmonary emboli in the long term acute care registered nurse. Plan CT pulmonary angiogram. 2. Would emphasize incentive spirometry that can be done with EzPAP if she is unwilling or unable to do it herself. 3. We would decrease her IV fluids, especially if she is now on a diet. Job ID: [id number]
[2019-05-12] MEDS ORDERED: Furosemide 40 MG/4 ML VIAL SLOW IVP SCH (17:00)
[2019-05-13] MEDS: metroNIDAZOLE 500 MG in Premix Bag 1 BAG IVPB SCH ×3 (01:00→17:36)
[2019-05-13] MEDS ORDERED: Furosemide 40 MG/4 ML VIAL SLOW IVP SCH (06:00)
[2019-05-13] MEDS: Ketorolac Tromethamine 30 MG/ML VIAL IVP PRN ×2 (08:49→20:35)
[2019-05-13] MEDS: Famotidine/PF 20 mg/2ml Vial SLOW IVP SCH ×2 (08:51→20:22)
[2019-05-13] MEDS: Heparin 5,000 UNITS/ML VIAL SC SCH ×2 (08:59→20:23)
--- NOTE | 2019-05-13 13:36 | PRG ---
DATE OF SERVICE: 05/13/2019 CHIEF COMPLAINT: "I feel better." HISTORY OF PRESENT ILLNESS: The patient is postoperative day 2 from a laparoscopic cholecystectomy. She is tolerating her diet. Her original pain is gone. Her postoperative pain continues to improve. No abdominal complaints at this time. PHYSICAL EXAMINATION: VITAL SINS: Temperature 98.6, heart rate 122, saturating 94% on room air, and blood pressure 111/71. LUNGS: Lungs sound grossly clear to auscultation bilaterally, but the patient's body habitus precludes definitive assessment. HEART: Irregularly irregular, but tachycardic. ABDOMEN: Obese and soft with normoactive bowel sounds. Incisions are clean, dry, and intact without erythema. Her Jair-Blanco drain was removed. LABORATORY DATA: No new labs this morning. ASSESSMENT: Postop day 2, laparoscopic cholecystectomy for acute on chronic cholecystitis - in the last 24 hours, there has been a workup for pulmonary and oxygenation/issues. There does not appear to be any well-defined etiology for her hypoxia outside of her morbid obesity, recent surgical status, and immobility. I suspect that these will all improve with time. Having the patient elevated instead flat, may also be of benefit. From a surgical perspective, she seems to be doing well and otherwise would meet criteria for discharge. PLAN: From a surgical perspective, she can have her diet advanced and be discharged whenever the other services are comfortable with her being released from the hospital. Job ID: [id number]
--- NOTE | 2019-05-13 14:10 | PRG ---
DATE OF SERVICE: 05/13/2019 SUBJECTIVE: The patient is seen and examined at the bedside. She seems to be doing quite well. She does not have much complaints to offer. OBJECTIVE: VITAL SIGNS: The patient is evaluated personally by me. Blood pressure is 111/71, pulse is 112, temperature is 98.5, and respiratory rate is 20, O2 saturation is 97% home on 4 L by nasal cannula. HEENT: Her head is atraumatic and normocephalic. Eyes; pupils are responding to light properly. Sclerae are nonicteric. NECK: Supple, obese. LUNGS: Breath sounds diminished at both bases with few crackles at both bases. HEART: S1, S2 normal. Tachycardic. No S3. No S4. ABDOMEN: Obese. EXTREMITIES: Limited function of the upper extremities and no motor function in the lower extremities present except for minimal ability to move toes in both feet. LABORATORY DATA: BNP 21.6. CT angiogram of the chest done yesterday showed fairly extensive bilateral diffuse alveolar and interstitial opacities, evidence for pulmonary edema versus bilateral pneumonia. IMPRESSION: 1. Acute on chronic cholecystitis, status post laparoscopic cholecystectomy. 2. Hypoxemia, postop of unclear etiology. At this point, Pulmonary was consulted. CT angiogram was done, which did not show any PE, but bilateral in both lower lobes quite significant changes of unclear etiology were notified. 3. Bedridden state in the setting of cerebral palsy. 4. Sinus tachycardia, which is most likely chronic. PLAN: The case was discussed with solution architect and general surgeon. The drain will be removed today. She will continue on antibiotics. She will continue on O2 and we will re-evaluate her tomorrow and see whether she needs to be discharged home on oxygen. Her Lasix was stopped after two doses and solution architect will make his recommendation later today. Job ID: [id number]
--- NOTE | 2019-05-13 14:23 | PRG ---
DATE OF SERVICE: 05/13/2019 SUBJECTIVE: The patient continues to be hypoxemic, but looks comfortable. OBJECTIVE: VITAL SIGNS: Temperature is 98.6, pulse 120, respirations 20, O2 saturation running about 94% on 4 L, and blood pressure 111/70. HEENT: Unremarkable except for class 4 Mallampati airway. NECK: No JVD. LUNGS: Clear. CARDIAC: S1 and S2. Regular. ABDOMEN: Soft. EXTREMITIES: No edema. IMAGING: The CT of the chest did not show any evidence of pulmonary emboli. Review of lung window shows atelectatic changes versus infiltrates in both bases. ASSESSMENT: Favor her hypoxemia being chronic in origin. She is currently on antibiotic therapy, which should be adequate coverage for any pneumonitis. I have told her I emphasized on spirometry. She will need a sleep study as an outpatient. I think she will likely need home oxygen when she leaves the hospital. That can be set up tomorrow. Job ID: [id number]
[2019-05-14] MEDS: metroNIDAZOLE 500 MG in Premix Bag 1 BAG IVPB SCH ×3 (01:28→17:50)
[2019-05-14] MEDS: Heparin 5,000 UNITS/ML VIAL SC SCH ×2 (08:51→21:56)
[2019-05-14] MEDS: Famotidine/PF 20 mg/2ml Vial SLOW IVP SCH ×2 (08:51→21:56)
--- NOTE | 2019-05-14 09:36 | PRG ---
DATE OF SERVICE: 05/14/2019 SUBJECTIVE: The patient seems to be doing okay, has no complaints. OBJECTIVE: VITAL SIGNS: Temperature 98.2, pulse 110, respirations 18, O2 saturation 95% on 4 L, and blood pressure 119/74. HEENT: Unremarkable. NECK: No JVD. CHEST: Clear to auscultation. CARDIAC: S1 and S2. Regular. ABDOMEN: Soft. EXTREMITIES: No edema. ASSESSMENT: Hypoxemia, which is either chronic or exacerbated by postoperative atelectasis. RECOMMENDATIONS: If her room air O2 saturation is less than 88%, she needs to go home on home oxygen. Also I would recommend a sleep study as an outpatient once she is recuperated from her current illness. No further recommendations at this time. Job ID: [id number]
--- NOTE | 2019-05-14 21:06 | PDOC.HOSPP ---
- Subjective Encounter Date: 05/14/19 Encounter Time: 14:00 Subjective: Continues on nasal cannula. Continues to have tachycardia. No overnight events. - Objective Vital Signs & Weight: Vital Signs (12 hours) Temp Pulse Resp BP Pulse Ox 05/14/19 20:43 98.4 F 110 H 20 119/67 94 L 05/14/19 16:00 97.9 F 104 H 23 H 117/66 94 L 05/14/19 13:20 96 05/14/19 13:14 98.3 F 102 H 22 H 115/63 98 Weight Weight 269 lb 12.8 oz I&O: 05/13/19 05/14/19 05/15/19 06:59 06:59 06:59 Intake Total 2140 1890 880 Output Total 2172 1800 450 Balance -32 90 430 Result Diagrams: 05/12/19 05:03 05/12/19 05:03 Hospitalist ROS - Review of Systems All other systems reviewed; all pertinent +/- noted in HPI/Subj - Medication Medications: Active Medications Generic Name Dose Route Start Last Admin Trade Name Freq PRN Reason Stop Dose Admin Famotidine 20 mg 05/11/19 09:00 05/14/19 08:51 Pepcid SLOW IVP 20 mg Q12HR TACO Administration Heparin Sodium (Porcine) 5,000 units 05/11/19 21:00 05/14/19 08:51 Heparin SC 5,000 units BID TACO Administration Metronidazole 500 mg/ Device 100 mls @ 100 mls/hr 05/11/19 10:00 05/14/19 17: 50 IVPB 100 mls Q8H TACO Administration Ciprofloxacin/Dextrose 400 mg/ 200 mls @ 200 mls/hr 05/12/19 23:59 05/14/19 11:26 Device IVPB 200 mls 1200,2359 TACO Administration Ketorolac Tromethamine 30 mg 05/11/19 04:10 05/13/19 20:35 Toradol IVP 05/16/19 04:11 30 mg Q6H PRN Administration Moderate to Severe Pain (6-10) Meperidine HCl 12.5 mg 05/11/19 04:10 05/11/19 23:16 Demerol SLOW IVP 12.5 mg Q4H PRN Administration Moderate to Severe Pain (6-10) Ondansetron HCl 4 mg 05/11/19 04:08 02/22/20 17:27 Zofran IVP 4 mg Q6H PRN Administration Nausea/Vomiting Sodium Chloride 10 ml 05/11/19 09:00 05/14/19 08:53 Flush - Normal Saline IVF 10 ml Q12HR TACO Administration - Exam General Appearance: NAD, awake alert General - other findings: morbidly obese Eye: PERRL, anicteric sclera ENT: normocephalic atraumatic, no oropharyngeal lesions, moist mucosa Neck: supple, symmetric, no JVD, no thyromegaly, no lymphadenopathy, no carotid bruit Heart: RRR, no murmur, no gallops, no rubs, normal peripheral pulses Respiratory: CTAB, no wheezes, no rales, no ronchi, normal chest expansion, no tachypnea, normal percussion Gastrointestinal: soft, non-tender, non-distended, normal bowel sounds, no palpable masses, no hepatomegaly, no splenomegaly, no bruit Extremities: no cyanosis, no clubbing, no edema Skin: normal turgor, no lesions, no rashes Neurological: no new deficit Neurological - other findings: contracted limbs Musculoskeletal: normal tone, normal strength, no muscle wasting Psychiatric: normal affect, normal behavior, A&O x 3 Hosp A/P (1) Hypoxia, sleep related Code(s): G47.34 - IDIO SLEEP RELATED NONOBSTRUCTIVE ALVEOLAR HYPOVENTILATION Status: Acute (2) Cholelithiasis Code(s): K80.20 - CALCULUS OF GALLBLADDER W/O CHOLECYSTITIS W/O OBSTRUCTION Status: Acute Qualifiers: Cholelithiasis location: gallbladder Cholecystitis presence: without cholecystitis Biliary obstruction: without biliary obstruction Qualified Code(s): K80.20 - Calculus of gallbladder without cholecystitis without obstruction (3) Cerebral palsy Code(s): G80.9 - CEREBRAL PALSY, UNSPECIFIED Status: Chronic Qualifiers: Cerebral palsy type: unspecified type Qualified Code(s): G80.9 - Cerebral palsy, unspecified (4) Morbid obesity Code(s): E66.01 - MORBID (SEVERE) OBESITY DUE TO EXCESS CALORIES Status: Chronic - Plan Continues to wear nasal cannula, will require hospital bed, and O2 at home Continue with antibiotics for now, her white count seems to be improving Continue with medications from home Continue with pain control, advance diet as tolerated Disposition: Pending hospital bed, and home O2 placement. She will require sleep study in the outpatient.
[2019-05-15] MEDS: metroNIDAZOLE 500 MG in Premix Bag 1 BAG IVPB SCH ×2 (03:05→10:21)
--- NOTE | 2019-05-15 09:14 | PRG ---
DATE OF SERVICE: 05/15/2019 SUBJECTIVE: She is in much better spirits this morning, has no complaints. OBJECTIVE: VITAL SIGNS: Temperature 98.7, pulse 104, respirations 16, O2 saturation 94% on 2 L, blood pressure 133/96. HEENT: Unremarkable. NECK: No JVD. LUNGS: Diminished breath sounds at bases. CARDIAC: S1, S2 regular. ABDOMEN: Soft. EXTREMITIES: No edema. ASSESSMENT: Postop hypoxemia, probably related to atelectasis, slowly improving. PLAN: She may need oxygen short-term at home. Alternative would be to wait a couple of days and see if she is back on room air. In any event, nothing further to add at this point. We will sign off. Please recall if further assistance needed. Job ID: [id number]
[2019-05-15] MEDS: Heparin 5,000 UNITS/ML VIAL SC SCH ×2 (09:24→21:05)
[2019-05-15] MEDS: Famotidine/PF 20 mg/2ml Vial SLOW IVP SCH ×2 (09:24→21:06)
[2019-05-15 12:30] LABS: #Eosinphils 0.8 thou/uL (0.0-0.7); #Lymphocytes 1.7 thou/uL (1.20-3.40); #Monocytes 0.8 thou/uL (0.11-0.59); %Basophils 0.5 % (0.0-1.0); %Eosinophils 8.7 % (0.0-10.0); %Monocytes 8.4 % (0.0-10.0); %Neutrophils 64.4 % (42.0-75.0); Hemoglobin 14.4 g/dL (12.0-16.0); Mean Corpuscular HGB CONC 32.4 g/dL (32.0-36.0); Mean Corpuscular Volume 95.8 fL (78.0-98.0); Mean Platelet Volume 6.4 fL (7.4-10.4); Platelet Count 361 thou/uL (130-400); RBC Distribution Width 13.6 % (11.5-14.5); Red Blood Cell (RBC) Count 4.64 mill/uL (4.20-5.40); White Blood Cell (WBC) Count 9.3 thou/uL (4.8-10.8)
--- NOTE | 2019-05-15 16:15 | PDOC.HOSPP ---
- Subjective Encounter Date: 05/15/19 Encounter Time: 13:20 Subjective: No overnight events. She continues on nasal cannula. Denies sob, cp, palpaitions , fever, chills or other sxs. - Objective Vital Signs & Weight: Vital Signs (12 hours) Temp Pulse Resp BP Pulse Ox 05/15/19 15:16 98.0 F 112 H 16 145/86 H 95 05/15/19 15:00 98.2 F 78 18 140/76 96 05/15/19 11:57 99.3 F 105 H 18 133/70 93 L 05/15/19 09:01 94 L 05/15/19 07:37 98.7 F 104 H 16 133/96 H 94 L Weight Weight 269 lb 12.8 oz I&O: 05/14/19 05/15/19 05/16/19 06:59 06:59 06:59 Intake Total 1890 880 170 Output Total 1800 1150 Balance 90 -270 170 Result Diagrams: 05/15/19 12:23 05/12/19 05:03 Hospitalist ROS - Review of Systems All other systems reviewed; all pertinent +/- noted in HPI/Subj - Medication Medications: Active Medications Generic Name Dose Route Start Last Admin Trade Name Freq PRN Reason Stop Dose Admin Acetaminophen 650 mg 05/11/19 04:08 05/14/19 21:56 Tylenol PO 650 mg Q4H PRN Administration Headache/Fever/Mild Pain (1-3) Famotidine 20 mg 05/11/19 09:00 05/15/19 09:24 Pepcid SLOW IVP 20 mg Q12HR TACO Administration Heparin Sodium (Porcine) 5,000 units 05/11/19 21:00 05/15/19 09:24 Heparin SC 5,000 units BID TACO Administration Ketorolac Tromethamine 30 mg 05/11/19 04:10 05/13/19 20:35 Toradol IVP 05/16/19 04:11 30 mg Q6H PRN Administration Moderate to Severe Pain (6-10) Meperidine HCl 12.5 mg 05/11/19 04:10 05/11/19 23:16 Demerol SLOW IVP 12.5 mg Q4H PRN Administration Moderate to Severe Pain (6-10) Ondansetron HCl 4 mg 05/11/19 04:08 05/12/19 17:27 Zofran IVP 4 mg Q6H PRN Administration Nausea/Vomiting Sodium Chloride 10 ml 05/11/19 09:00 05/15/19 09:25 Flush - Normal Saline IVF 10 ml Q12HR TACO Administration - Exam General Appearance: NAD, awake alert General - other findings: mobridly obese Eye: PERRL, anicteric sclera ENT: normocephalic atraumatic, no oropharyngeal lesions, moist mucosa Neck: supple, symmetric, no JVD, no thyromegaly, no lymphadenopathy, no carotid bruit Heart: RRR, no murmur, no gallops, no rubs, normal peripheral pulses Respiratory: CTAB, no wheezes, no rales, no ronchi, normal chest expansion, no tachypnea, normal percussion Gastrointestinal: soft, non-tender, non-distended, normal bowel sounds, no palpable masses, no hepatomegaly, no splenomegaly, no bruit Extremities: no cyanosis, no clubbing, no edema Skin: normal turgor, no lesions, no rashes Neurological: normal sensation to touch Neurological - other findings: muscle contractures, cerebral palsy Musculoskeletal: normal tone, normal strength, no muscle wasting Psychiatric: normal affect, normal behavior, A&O x 3 Hosp A/P (1) Hypoxia, sleep related Code(s): G47.34 - IDIO SLEEP RELATED NONOBSTRUCTIVE ALVEOLAR HYPOVENTILATION Status: Acute (2) Cholelithiasis Code(s): K80.20 - CALCULUS OF GALLBLADDER W/O CHOLECYSTITIS W/O OBSTRUCTION Status: Acute Qualifiers: Cholelithiasis location: gallbladder Cholecystitis presence: without cholecystitis Biliary obstruction: without biliary obstruction Qualified Code(s): K80.20 - Calculus of gallbladder without cholecystitis without obstruction (3) Cerebral palsy Code(s): G80.9 - CEREBRAL PALSY, UNSPECIFIED Status: Chronic Qualifiers: Cerebral palsy type: unspecified type Qualified Code(s): G80.9 - Cerebral palsy, unspecified (4) Morbid obesity Code(s): E66.01 - MORBID (SEVERE) OBESITY DUE TO EXCESS CALORIES Status: Chronic - Plan Continues to wear nasal cannula, will require hospital bed, and O2 at home Continue with antibiotics for now, will switch to PO today. Continue with medications from home Continue with pain control, advance diet as tolerated Disposition: Pending hospital bed, and home O2 placement. She will require sleep study in the outpatient.
--- NOTE | 2019-05-15 16:19 | PQF ---
CLINICAL DOCUMENTATION IMPROVEMENT CLARIFICATION FORM: ICD-10 Updated PLEASE DO AN ADDENDUM TO THE PROGRESS NOTE WITH ANY DOCUMENTATION UPDATES OR ADDITIONS AND CARRY THROUGH TO DC SUMMARY. THANK YOU. DATE: 05/15/2019; 05/18/2019 ATTN: Dr. Howard/ Dr. Gracia Please exercise your independent, professional judgment in responding to the clarification form. Clinical indicators are provided on the bottom of this form for your review Please check appropriate box(s): [ ] Acute respiratory failure due to an existing co-morbid condition: [ ] Acute on chronic respiratory failure due to an existing co-morbid condition : [ ] Acute respiratory failure related to the surgical procedure [ ] Acute on chronic respiratory failure related to the surgical procedure [ x ] Respiratory insufficiency due to an existing co-morbid condition: [ ] Respiratory insufficiency due to the surgical procedure [ ] Other diagnosis [ ] Unable to determine For continuity of documentation, please document condition throughout progress notes and discharge summary. Thank You. CLINICAL INDICATORS - SIGNS / SYMPTOMS / LABS/ RESULTS AND LOCATION IN MR LAB: ABG 05/12: Po2 44.9 Room Air 05/13 (Samia) Hypoxemia, postop of unclear etiology. 05/13 (Pal) There does not appear to be any well-defined etiology for her hypoxia outside of her morbid obesity, recent surgical status, and immobility. 05/13 (Sloan) pulse 120, resp. 20, O2 saturation running about 94% 4L Favor her hypoxemia being chronic in origin. 05/14 (Anita) Hypoxia, sleep related. 05/15 (Sloan): resp. 16, O2 saturation 94% on 2 L Postop hypoxemia, probably related to atelectasis, slowly improving RISKS: 05/11 (Pal) Acute cholecystitis. Morbid obesity. 05/11 (Pal) Laparoscopic cholecystectomy TREATMENT: Pulmonology consult 05/12 Order 05/12: Resp: O2 to keep sats 92% continuous. Thank you, Brittni (This form is maintained as a part of the permanent medical record) 2015 [employer]. All Rights Reserved Brittni Johnson RN, BSN [email or web address] Office: [phone] [facility]
[2019-05-15] MEDS: metroNIDAZOLE 500 MG TAB PO SCH ×2 (17:15→23:48)
[2019-05-15] MEDS: Ciprofloxacin 500 MG TAB PO SCH (21:05)
[2019-05-16 04:40] LABS: #Eosinphils 0.8 thou/uL (0.0-0.7); #Lymphocytes 1.6 thou/uL (1.20-3.40); #Monocytes 0.9 thou/uL (0.11-0.59); #Neutrophils 6.8 thou/uL (1.40-6.50); %Basophils 0.2 % (0.0-1.0); %Eosinophils 7.6 % (0.0-10.0); %Lymphocytes 16.2 % (21.0-51.0); %Monocytes 8.6 % (0.0-10.0); %Neutrophils 67.4 % (42.0-75.0); Mean Corpuscular HGB CONC 32.2 g/dL (32.0-36.0); Mean Corpuscular Hemoglobin 30.9 pg (27.0-31.0); Mean Corpuscular Volume 95.9 fL (78.0-98.0); Mean Platelet Volume 6.9 fL (7.4-10.4); Platelet Count 372 thou/uL (130-400); RBC Distribution Width 13.6 % (11.5-14.5); Red Blood Cell (RBC) Count 4.86 mill/uL (4.20-5.40); White Blood Cell (WBC) Count 10.1 thou/uL (4.8-10.8)
[2019-05-16 05:04] LABS: Anion Gap 14 mmol/L (10-20); BUN (Urea Nitrogen) 6 mg/dL (7.0-18.7); Calc. Creatinine Clearance 252 mL/min (70-130); Calcium 8.9 mg/dL (7.8-10.44); Carbon Dioxide 25 mmol/L (22-29); Chloride 101 mmol/L (98-107); Estimated GFR-MDRD Greater than 90; Glucose 100 mg/dL (70-105); Potassium 3.9 mmol/L (3.5-5.1); Sodium 136 mmol/L (136-145)
[2019-05-16] MEDS: Ciprofloxacin 500 MG TAB PO SCH (05:57)
[2019-05-16] MEDS: Famotidine/PF 20 mg/2ml Vial SLOW IVP SCH (09:10)
[2019-05-16] MEDS: metroNIDAZOLE 500 MG TAB PO SCH (09:10)
[2019-05-16] MEDS: Heparin 5,000 UNITS/ML VIAL SC SCH (09:10)
[2019-05-16 11:32] VITALS: BP 129/93; TEMP 98.6
--- NOTE | 2019-05-16 13:44 | PDOC.BPN ---
- Brief Progress Note Pt con't to do well. No changes since Tuesday. She is tolerating her diet. No ABD pain or problems. No fevers. VS are stable for her. ABD is soft, NT, incisions are C/D/I without erythema Path was reviewed with the pt and her father. She is going home today. I do not need to see her in clinic. I think that the process of getting her to clinic is more than the value derived from doing so. I went over wound care with the father. If she develops S/S of a wound infection, I will be happy to see her in clinic. I disucssed all of that with the pt and her father. Armando Aguillon
--- NOTE | 2019-05-16 15:16 | PDOC.BPN ---
- Brief Progress Note DISCHARGE SUMMARY LIVE [facility] Discharge Patient Name: ELVIRA HAYWARD Date of : 82 Patient Status: Inpatient Attending Provider: Johnathon Howard Date: 05/16/19 15:14 Initialization Date: 05/16/19 15:14 Discharge - Disposition Disposition: HOME - Patient Instructions Pre-Printed Education: Laparoscopic Cholecystectomy Care Plan Goals: Follow Dr. Aguillon instruction for cleaning incision sites. No Follow up appointment is needed with Dr. Aguillon unless incision's appear infected. Follow up with Dr. Lisa for outpatient sleep study. FOCUS: Transition from Acute Care after Discharge GOAL: Successful transition to care in the community YOUR TASKS: (1) review all information outlined in your discharge packet (2) follow any instructions outlined in your discharge packet (3) contact your primary care provider if you have questions or need additional assistance Forms: Work/Back to School - Referrals and PCP Follow-Up Referrals and PCP Follow-Up: PROVIDER,NO PCP [Primary Care Provider] - Richard Lisa MD [Active] - - Activity Instructions Activity:: Activity as Tolerated - Equipment/Supply Instructions Equipment/Supplies:: Oxygen Additional Equipment / Supplies Instructions:: hospital bed Course - Course Orders, Labs, Meds: Patient with cerebral palsy initially admitted for abdominal pain. CT of the abdomen on admission found distention of the gallbladder with gallbladder calculi present. She was managed for acute cholecystitis. She was taken to operating room and underwent laparoscopic cholecystectomy on 05/11/2019. Postoperatively she developed hypoxemia of unclear etiology, a CTA was done to investigate for potential VTE but the test was overall negative. According to pulmonary team, she likely has underlying obstructive sleep apnea as she is morbidly obese and require outpatient sleep study and home O2 in the interim. While on oxygen therapy, she noted improvement in her overall saturation and blood gas. Due to her comorbidities of cerebral palsy and mainly being bedbound , she will be discharged with equipment to the house including a hospital bed and home oxygen. We provided information on her to obtain sleep study in the outpatient. Hosp A/P (1) Hypoxia, sleep related Code(s): G47.34 - IDIO SLEEP RELATED NONOBSTRUCTIVE ALVEOLAR HYPOVENTILATION Status: Acute (2) Cholelithiasis Code(s): K80.20 - CALCULUS OF GALLBLADDER W/O CHOLECYSTITIS W/O OBSTRUCTION Status: Acute Qualifiers: Cholelithiasis location: gallbladder Cholecystitis presence: without cholecystitis Biliary obstruction: without biliary obstruction Qualified Code(s): K80.20 - Calculus of gallbladder without cholecystitis without obstruction (3) Cerebral palsy Code(s): G80.9 - CEREBRAL PALSY, UNSPECIFIED Status: Chronic Qualifiers: Cerebral palsy type: unspecified type Qualified Code(s): G80.9 - Cerebral palsy, unspecified (4) Morbid obesity Code(s): E66.01 - MORBID (SEVERE) OBESITY DUE TO EXCESS CALORIES Status: Chronic Total time spent on d/c planning and management approximately 32 minutes.
== END 2019-05-16 15:56 | disposition home or self-care (01) | DRG 418 ==
LOC: ERS 19:40 → 2SE 05-11 03:55
PROVIDERS: ADMIT Internal Medicine Sleep Medicine; ATTEND Internal Medicine
PROC: 0FT44ZZ Resection of Gallbladder, Percutaneous Endoscopic Approach (ICD-10-PCS; principal; 2019-05-11)
DX: K80.12 Calculus of gallbladder with acute and chronic cholecystitis without obstruction (principal); Z68.43 Body mass index [BMI] 50.0-59.9, adult; K82.1 Hydrops of gallbladder; M48.56XA Collapsed vertebra, not elsewhere classified, lumbar region, initial encounter for fracture; J98.11 Atelectasis; G80.9 Cerebral palsy, unspecified; E66.01 Morbid (severe) obesity due to excess calories; Z88.0 Allergy status to penicillin; Z91.010 Allergy to peanuts; R00.0 Tachycardia, unspecified; G47.34 Idiopathic sleep related nonobstructive alveolar hypoventilation
CPT/HCPCS: 36415; 71045; 71275; 74176; 76705; 80048; 80053; 81025; 82805; 83690; 83880; 84484; 84703; 85025; 85379; 88304; 90471; 90686; 93005; 96361; 96374; 96375; 96376; G0008; J0744; J1100; J1170; J1644; J1885; J1940; J2001; J2175; J2250; J2270; J2405; J2704; J3010; Q9967; S0020; S0028

== ENCOUNTER 2023-05-10 13:55 | Emergency (ER) | payer OTHER ==
[~2023-05-10 13:55] MED LIST changes: -Iopamidol-370 76% 500 ML 1 ML ONE; +Iopamidol-370 76% 500 ML MDV (1 ML CHARGE) ONE
[2023-05-10] MEDS ORDERED: Morphine 4 MG/ML VIAL ONE ×2 (15:08→19:40)
[2023-05-10] MEDS ORDERED: Ondansetron PF 4 MG/2 ML Vial ONE ×2 (15:08→19:40)
[2023-05-10 16:02] LABS: #Basophils 0.1 thou/uL (0.0-0.2); #Monocytes 0.7 thou/uL (0.11-0.59); #Neutrophils 12.9 thou/uL (1.40-6.50); %Basophils 0.4 % (0.0-1.0); %Monocytes 4.6 % (0.0-10.0); %Neutrophils 88.8 % (42.0-75.0); Hematocrit 51.9 % (36.0-47.0); Hemoglobin 15.3 g/dL (12.0-16.0); Mean Corpuscular HGB CONC 29.5 g/dL (32.0-36.0); Mean Corpuscular Hemoglobin 24.6 pg (27.0-31.0); Mean Corpuscular Volume 83.4 fl (78.0-98.0); Mean Platelet Volume 9.3 fL (7.4-10.4); Platelet Count 380 10x3/uL (130-400); RBC Distribution Width 20.7 % (11.5-14.5); Red Blood Cell (RBC) Count 6.22 mill/uL (4.20-5.40); White Blood Cell (WBC) Count 14.5 10x3/uL (4.8-10.8)
[2023-05-10 16:07] LABS: BHCG - Serum Negative (NEGATIVE); Pregs Control Background? CLEAR/WHITE (CLR/WHITE); Pregs Control Bar Appear? YES (CONTROL BAR)
[2023-05-10 16:26] LABS: ALT (SGPT) 8 U/L (8-55); AST (SGOT) 13 U/L (5-34); Albumin 3.5 g/dL (3.5-5.0); Alkaline Phosphatase 111 U/L (40-110); Anion Gap 10 mmol/L (10-20); BUN (Urea Nitrogen) 9 mg/dL (7.0-18.7); Bilirubin, Total 0.5 mg/dL (0.2-1.2); Calc. Creatinine Clearance 0 mL/min (70-130); Carbon Dioxide 31 mmol/L (22-29); Chloride 102 mmol/L (98-107); Estimated GFR 117; Globulin 3.9 g/dL (2.4-3.5); Glucose 112 mg/dL (70-105); Lipase 10 U/L (8-78); Potassium 3.1 mmol/L (3.5-5.1); Protein, Total 7.4 g/dL (6.0-8.3); Sodium 140 mmol/L (136-145)
[2023-05-10 19:44] LABS: Bacteria/HPF None Seen HPF (None Seen); Bilirubin Negative (Negative); Blood, Urine 2+ (Negative); CAUTI Indications for Culture Dysuria,urgency,freq; Clarity Clear (Clear); Glucose, Urine (Dipstick) Normal (Negative); Ketone, Urine 60 mg/dL (Negative); Leukocyte Negative Leu/uL (Negative); Nitrite Negative (Negative); Protein, Urine (Dipstick) 30 mg/dL (Neg-Trace); RBC/HPF Greater than 50 HPF (0-3); Squamous Epithelial 0-3 HPF (0-3); WBC/HPF 0-3 HPF (0-3)
[2023-05-10 19:45] LABS: Specific Gravity, Urine 1.048 (1.002-1.036)
[2023-05-10 19:47] LABS: Urine Culture Reflex No No
[2023-05-10] MEDS ORDERED: Potassium Chloride 20 MEQ TAB ONE (20:21)
== END 2023-05-10 22:04 ==
LOC: ERS 13:55
DX: N20.2 Calculus of kidney with calculus of ureter (principal); E87.6 Hypokalemia; N64.89 Other specified disorders of breast
CPT/HCPCS: 36416; 74177; 80053; 81001; 83690; 84703; 85025; 93005; 96374; 96375; 96376; J2270; J2405; Q9967